=== PATIENT | male | born 1990 | race African-American/Black ===

== ENCOUNTER 2016-06-07 20:58 | Emergency (ER) | payer OTHER ==
[~2016-06-07] VITALS: Ht 167.6 cm; Wt 74.6 kg
[~2016-06-07 20:58] MED LIST: CLEOCIN300 MG PO; NAPROXEN500 MG PO
[2016-06-07 21:00] VITALS: BP 141/88
[2016-06-07] MEDS ORDERED: MOTRIN600 MG PO (22:08)
== END 2016-06-07 22:21 | disposition home or self-care (01) ==
LOC: EME 20:58
DX: M24.412 Recurrent dislocation, left shoulder (principal); F17.200 Nicotine dependence, unspecified, uncomplicated
CPT/HCPCS: 73030; 99281; 99283

== ENCOUNTER 2016-06-28 09:18 | Emergency (ER) | payer OTHER ==
[~2016-06-28] VITALS: Ht 167.6 cm; Wt 69.7 kg
[~2016-06-28 09:18] MED LIST changes: +MOTRIN600 MG PO
[2016-06-28 11:18] VITALS: BP 132/74
== END 2016-06-28 11:19 | disposition home or self-care (01) ==
LOC: EME 09:18
DX: Z02.89 Encounter for other administrative examinations (principal); S43.402D Unspecified sprain of left shoulder joint, subsequent encounter
CPT/HCPCS: 99281; 99283

== ENCOUNTER 2016-09-22 10:39 | Emergency (ER) | payer OTHER ==
[~2016-09-22] VITALS: Ht 170.2 cm; Wt 68.2 kg
[2016-09-22 11:46] LABS: HEMATOCRIT 42.5 % (38.0-50.0); MCH 29.8 PG (29.0-34.0); MCHC 32.2 G/DL (30.0-36.0); MCV 92.6 FL (86-99); MEAN PLAT.VOLUME 9.3 uM^3 (9.0-12.4); PLATELET COUNT 259 K/uL (156-360); RBC DIS.WIDTH-CV 13.6 % (11.8-14.6); RBC DIS.WIDTH-SD 46.9 % (39-53); RED BLOOD COUNT 4.59 M/uL (4.00-5.50); WHITE BLOOD COUNT 5.8 K/uL (4.1-10.2)
[2016-09-22 11:57] LABS: CHLORIDE 104 mEq/L (99-109); POTASSIUM 3.7 mEq/L (3.7-5.4); SODIUM 140 mEq/L (136-147)
[2016-09-22 11:59] LABS: GLUCOSE 95 mg/dL (70-99)
[2016-09-22 12:00] LABS: ANION GAP 10 MEQ/L (2-14)
[2016-09-22 12:01] LABS: TOTAL BILIRUBIN 1.3 mg/dL (0.0-1.0)
[2016-09-22 12:02] LABS: ALKALINE PHOSPHATASE 95 IU/L (3-129)
[2016-09-22 12:03] LABS: GFR ESTIMATE (CALCULATED) > 59 mL/min/
[2016-09-22 12:04] LABS: UREA NITROGEN (BUN) 11 mg/dL (9-23)
[2016-09-22 13:24] LABS: ADD MIUA? YES; BILIRUBIN NEGATIVE; BLOOD NEGATIVE; COLOR YELLOW ((YELLOW)); GLUCOSE (STRIP) NEGATIVE; KETONES 5; LEUKOCYTES NEGATIVE; NITRITE NEGATIVE; PROTEIN (STRIP) 30; SPECIFIC GRAVITY 1.028 (1.000-1.030)
[2016-09-22 13:27] LABS: BACTERIA RARE /HPF; EPITHELIAL CELLS NONE SEEN /HPF; MUCUS 2+ /LPF; RED BLOOD CELLS 0-5 /HPF (0-5); UCUL ADDED? NO; WHITE BLOOD CELLS 0-5 /HPF (0-5)
[2016-09-22] MEDS ORDERED: ZANTAC150 MG PO (14:04)
[2016-09-22 14:18] VITALS: BP 150/77
== END 2016-09-22 14:18 | disposition home or self-care (01) ==
LOC: EME 10:39
DX: R10.13 Epigastric pain (principal); F17.210 Nicotine dependence, cigarettes, uncomplicated; F12.90 Cannabis use, unspecified, uncomplicated
CPT/HCPCS: 74000; 80053; 81003; 85027; 93005; 99281; 99284